=== PATIENT | female | born 1980 | race African-American/Black ===

== ENCOUNTER 2016-08-11 17:45 | Inpatient (IN) | payer OTHER ==
[2016-08-11] MEDS ORDERED: APRESOLINE INJ 20 MG VIAL IVP PRN (19:17)
[2016-08-11] MEDS ORDERED: CATAPRES TAB 0.1 MG PO PRN (19:17)
[2016-08-11] MEDS ORDERED: NS 1000 ML 1,000 ML IV SCH (20:00)
[2016-08-11] MEDS: ZESTRIL TAB 40 MG PO SCH (20:47)
[2016-08-11] MEDS: SNACK - Diabetic Appropriate PO SCH (20:47)
[2016-08-11] MEDS: ACTOS PO SCH (20:47)
[2016-08-11 20:51] LABS: BASOPHILS # (AUTO) 0.1 X10^3/uL (0.0-0.1); BASOPHILS % (AUTO) 0.9 % (0.2-1.0); EOSINOPHILS # (AUTO) 0.1 x10^3/uL (0.0-0.2); HEMOGLOBIN 12.7 g/dL (12.0-16.0); LYMPHOCYTES % (AUTO) 31.6 % (21.0-51.0); MEAN CORPUSCULAR HEMOGLOBIN 24.1 pg (27.0-34.0); MEAN CORPUSCULAR HGB CONC 32.7 g/dL (33.0-35.0); MEAN CORPUSCULAR VOLUME 73.8 fL (80.0-100.0); MEAN PLATELET VOLUME 8.6 fL (7.4-11.0); MONOCYTES # (AUTO) 0.7 x10^3/uL (0.3-0.8); MONOCYTES % (AUTO) 7.6 % (0.0-13.0); NEUTROPHILS # (AUTO) 5.6 x10^3/uL (2.2-4.8); NEUTROPHILS % (AUTO) 58.9 % (42.0-75.0); PLATELET COUNT 219 X10^3/uL (150.0-450.0); RED BLOOD COUNT 5.28 X10^6/uL (3.5-5.4); RED CELL DISTRIBUTION WIDTH 15.2 % (11.6-16.5); WHITE BLOOD COUNT 9.6 X10^3/uL (3.6-10.0)
[2016-08-11 21:04] LABS: HEMOGLOBIN A1C 10.2 % (4.5-6.2)
[2016-08-11 21:07] LABS: HYPOCHROMASIA SLIGHT; MICROCYTOSIS SLIGHT; PLATELET MORPHOLOGY COMMENT NORMAL (NORMAL)
[2016-08-11 21:16] LABS: ALANINE AMINOTRANSFERASE 30 Units/L (12-78); ALBUMIN 3.6 g/dL (3.4-5.0); ALKALINE PHOSPHATASE 116 Units/L (46-116); ASPARTATE AMINO TRANSFERASE 20 Units/L (15-37); BLOOD UREA NITROGEN 11 mg/dL (7-18); CARBON DIOXIDE 23.9 mmol/L (21-32); CHLORIDE 95 mmol/L (98-107); CKMB % 1.1 % (<4); COR NA(FOR HYPERGLY) 138 mmol/L (136-145); CREATINE KINASE 91 Units/L (26-192); CREATINE KINASE MB < 1.0 ng/mL (0-4.0); CREATININE 1.11 mg/dL (0.55-1.02); GLUCOSE 474 mg/dL (65-99); SODIUM 129 mmol/L (136-145); TOTAL PROTEIN 8.3 g/dL (6.4-8.2); TROPONIN I < 0.02 ng/mL (0-1.5); eGFR BLACK RACES > 60 (>60); eGFR NON BLACK RACES 60 (>60)
[2016-08-11] MEDS: HumuLIN R SUBCUT PRN (22:22)
[2016-08-11] MEDS: KEPPRA TAB 500 MG PO SCH (22:25)
[2016-08-11] MEDS: DILANTIN CAP 100 MG EXT REL PO SCH (22:25)
[2016-08-11 23:03] LABS: BILIRUBIN,URINE NEGATIVE (NEGATIVE); BLOOD/HEMOGLOBIN,URINE NEGATIVE (NEGATIVE); GLUCOSE, URINE 4+ (NEGATIVE); KETONES,URINE 3+ (NEGATIVE); LEUKOCYTE ESTERASE ,URINE NEGATIVE (NEGATIVE); NITRITES,URINE NEGATIVE (NEGATIVE); PROTEIN,URINE NEGATIVE (NEGATIVE); UROBILINOGEN,URINE NORMAL (NORMAL)
[2016-08-11 23:10] LABS: APPEARANCE,URINE CLEAR (CLEAR); BACTERIA,URINE TRACE /HPF (NEGATIVE); COLOR,URINE PALE YELLOW (YELLOW); RBC,URINE 0-2 /HPF (NEGATIVE); SQUAMOUS EPITHELIAL CELL,UR RARE /HPF (NEGATIVE)
[2016-08-11] MEDS: LEVEMIR SC SCH (23:40)
[2016-08-12 01:32] LABS: CKMB % 1.2 % (<4); CREATINE KINASE 84 Units/L (26-192); CREATINE KINASE MB < 1.0 ng/mL (0-4.0); TROPONIN I < 0.02 ng/mL (0-1.5)
[2016-08-12] MEDS: HumuLIN R SUBCUT PRN ×5 (06:12→21:41)
[2016-08-12 06:14] LABS: BLOOD UREA NITROGEN 8 mg/dL (7-18); CALCIUM 8.7 mg/dL (8.5-10.1); CARBON DIOXIDE 25.3 mmol/L (21-32); CHLORIDE 100 mmol/L (98-107); COR NA(FOR HYPERGLY) 140 mmol/L (136-145); CREATININE 0.91 mg/dL (0.55-1.02); GLUCOSE 305 mg/dL (65-99); SODIUM 135 mmol/L (136-145); eGFR BLACK RACES > 60 (>60); eGFR NON BLACK RACES > 60 (>60)
--- NOTE | 2016-08-12 06:21 | RAD ---
PA and lateral Chest Indication: Hypertensive urgency Comparison: None available Findings: The trachea is midline. The cardiac silhouette is unremarkable. The lungs are clear without focal infiltrate or effusion. The bony thorax is unremarkable. IMPRESSION: 1. No acute cardiopulmonary abnormality. Reported By:
[2016-08-12 06:22] LABS: BASOPHILS % (AUTO) 0.6 % (0.2-1.0); EOSINOPHILS # (AUTO) 0.1 x10^3/uL (0.0-0.2); EOSINOPHILS % (AUTO) 1.5 % (0.9-2.9); HEMATOCRIT 36.3 % (36.0-47.0); HEMOGLOBIN 12.1 g/dL (12.0-16.0); LYMPHOCYTES # (AUTO) 2.3 X10^3/uL (1.3-2.9); LYMPHOCYTES % (AUTO) 31.1 % (21.0-51.0); MEAN CORPUSCULAR HEMOGLOBIN 24.3 pg (27.0-34.0); MEAN CORPUSCULAR HGB CONC 33.2 g/dL (33.0-35.0); MEAN PLATELET VOLUME 8.8 fL (7.4-11.0); MONOCYTES # (AUTO) 0.7 x10^3/uL (0.3-0.8); MONOCYTES % (AUTO) 9.5 % (0.0-13.0); NEUTROPHILS # (AUTO) 4.2 x10^3/uL (2.2-4.8); NEUTROPHILS % (AUTO) 57.3 % (42.0-75.0); PLATELET COUNT 190 X10^3/uL (150.0-450.0); RED BLOOD COUNT 4.97 X10^6/uL (3.5-5.4); RED CELL DISTRIBUTION WIDTH 15.1 % (11.6-16.5); WHITE BLOOD COUNT 7.3 X10^3/uL (3.6-10.0)
[2016-08-12 08:06] LABS: CKMB % 1.3 % (<4); CREATINE KINASE 80 Units/L (26-192); CREATINE KINASE MB < 1.0 ng/mL (0-4.0); TROPONIN I < 0.02 ng/mL (0-1.5)
[2016-08-12] MEDS: ZESTRIL TAB 40 MG PO SCH (08:44)
[2016-08-12] MEDS: NORVASC TAB 5 MG PO SCH (08:44)
[2016-08-12] MEDS: ACTOS PO SCH (09:31)
[2016-08-12] MEDS ORDERED: NS 1000 ML 1,000 ML IV SCH (10:00)
--- NOTE | 2016-08-12 11:10 | VAS ---
HISTORY: Blurred vision Study: Carotid ultrasound Comparison: None Technique: Multiple prasad scale and color flow Doppler images of the right and left carotid arterial system were obtained. The vertebral arterial system was evaluated as well. Findings: The peak systolic velocity of the right ICA is 55 cm/sec. The peak systolic velocity of the left IC A is 66 cm/sec. The ICA/CCA ratio on the right is 0.9. The ICA/CCA ratio on the left is 1.3. Antegra de vertebral flow was noted on the right. Vertebral flow on the left was not definitely visualized. Correlation with CTA may be helpful. IMPRESSION: 1. No hemodynamically significant carotid stenosis is appreciated. 2. Antegrade vertebral flow on the right. No definite vertebral flow was appreciated on the Reported By:
--- NOTE | 2016-08-12 11:15 | CT ---
HISTORY: Blurry vision Study: CT brain without contrast Comparison: None Technique: Multiple axial images of the brain were obtained from the skull base to the vertex without administr ation of IV contrast. Dose reduction techniques including Automated Exposure Control (AEC) and adju stment of mA and kV were utilized. Findings: The brain parenchyma is within normal limits for patient's age. No evidence of acute hemorrhage, mi dline shift, mass effect or abnormal extra-axial fluid collection. The ventricular system is symmet melanie and nondilated. The soft tissues and osseous structures are unremarkable. The visualized parana lee sinuses are clear. IMPRESSION: 1.No acute intracranial abnormality. Reported By:
--- NOTE | 2016-08-12 13:26 | DR.H&P ---
H&P - History & Physical for Day of: H&P Date: 08/11/16 - Chief Complaint Chief Complaint: HIGH BLOOD PRESSURE, DIZZINESS, VISION "BLURRY" - Allergies Allergies/Adverse Reactions: Allergies Allergy/AdvReac Type Severity Reaction Status Date / Time No Known Drug Allergy Allergy Verified 08/11/16 20:23 - History of Present Illness History of Present Illness: PATIENT IS A 36-YEAR-OLD MORBIDLY OBESE BLACK FEMALE WHO WAS ADMITTED FROM [facility] OFF[facility] WITH HYPERTENSIVE URGENCY, ELEVATED GLUCOSE AND A COMPLAINTS OF DIZZINESS AND BLURRY VISION. pATIENT DOES HAVE HISTORY OF HYPERTENSION AND DIABETES. pLAN TO ADMIT FOR BLOOD PRESSURE AND BLOOD SUGAR CONTROL AND FURTHER EVALUATION OF DIZZINESS AND VISION CHANGES - Past Medical History Past Medical History: Diabetes, Hypertension - Family History Family Medical History: Diabetes Mellitus, Hypertension - Social History Does patient currently use any type of tobacco product: No Have you used tobacco products in the last 12 months: No Type of Tobacco Use: None Does any household member use tobacco: No Alcohol Use: None Drug Use: None - Medications Home Medications: Alprazolam [Xanax] 0.25 mg PO TID PRN 08/12/16 [History Confirmed 08/12/16] Amlodipine Besylate [NORVASC 5 MG *] 5 mg PO DAILY 08/12/16 [History Confirmed 08/12/16] Diazepam [Valium] 10 mg PO DAILY 08/12/16 [History Confirmed 08/12/16] Furosemide [Lasix] 20 mg PO DAILY 08/12/16 [History Confirmed 08/12/16] Gabapentin 100 mg PO TID 08/12/16 [History Confirmed 08/12/16] Hydrocodone-Acet 10/325 mg [NORCO 10 MG/325 MG *] 1 tab PO TID 08/12/16 [ History Confirmed 08/12/16] Levetiracetam [Keppra 1000 mg] 1,000 mg PO BID 08/12/16 [History Confirmed 08/12] Lisinopril 40 mg PO DAILY 08/12/16 [History Confirmed 08/12/16] Phenytoin Sodium Ext Rel [Dilantin Cap 100 mg Ext Rel] 200 mg PO HS 08/12/16 [ History Confirmed 08/12/16] Phenytoin Sodium Ext Rel [Dilantin Cap 100 mg Ext Rel] 400 mg PO AC 08/12/16 [ History Confirmed 08/12/16] Sitagliptin Phosphate [Januvia 25 mg] 25 mg PO DAILY 08/12/16 [History Confirmed 08/12/16] - Review of Systems Constitutional: No Symptoms Reported Eyes: No Symptoms Reported ENT: No Symptoms Reported Respiratory: No Symptoms Reported Cardiovascular: Edema Gastrointestinal: No Symptoms Reported Genitourinary: No Symptoms Reported Musculoskeletal: No Symptoms Reported Skin: No Symptoms Reported Neurological: Other (DIZZINESS, VISION BLURRED) - Physical Exam Vital Signs: Temperature 97.9 F Pulse Rate [Right Brachial] 87 Pulse Rate 86 Respiratory Rate 20 Blood Pressure [Right Arm] 148/67 O2 Sat by Pulse Oximetry 96 Oriented: Normal Eyes: Blurred Vision (C/O) Ear: Normal Nose: Normal Throat: Normal Respiratory: Clear Throughout Cardiovascular: Normal, Edema (+1 BILATERAL LOWER EXTREMITY EDEMA) : Normal Auscultation: Bowel Sounds: Normal Palpation: Normal Tenderness: Normal Skin: Normal Musculoskeletal: Normal Mood Description: Calm Speech Pattern: Clear, Appropriate - Assessment/Plan (1) Hypertensive urgency Status: Acute Plan: ADMIT, BP AND LIPID CONTROL. CARDIAC MONITORING, BS CONTROL WITH SSI (2) Vision disturbance Status: Acute (3) Hyperglycemia Status: Acute (4) Depression Qualifiers: Depression Type: D Major depression recurrence: M Active/Remission status : A Major depression episode severity: M Psychotic features: P Trimester: T Status: Chronic (5) Diabetes mellitus, type II Qualifiers: Diabetes mellitus complication status: D Diabetes mellitus complication detail: D Diabetic retinopathy severity: D Proliferative retinopathy type: P Diabetes mellitus macular edema: D Diabetes mellitus chcf insulin use : D Laterality: L Chronic kidney disease stage: C Status: Chronic Plan: SSI
--- NOTE | 2016-08-12 13:28 | PCM.PROG ---
Addendum entered and electronically signed by ARTHUR MOORE 08/12/16 13:34: assessment and plan: Seizure disorder. Obtain Dilantin level, seizure precautions Original Note: Progress Note - Progress Note for Day of Date: 08/12/16 - Subjective Subjective: patient is a 36-year-old black female who was admitted one day ago with hyper-tension and hyperglycemia. Patient's blood sugar on admission was greater than 400 is slightly improved to 300 this morning. Patient was also hyponatremic on admission and has improved to 1:30/plan to continue IV hydration , CT of the head and carotid artery ultrasound due to continued vision impairment. - Past Medical Family Social History Past Med/Fam/Surg Hx: No changes since H&P Allergies: Allergies No Known Drug Allergy Allergy (Verified 08/11/16 20:23) - Review of Systems ROS: No change since H&P - Vital Signs and I&O's Vital Signs: Temperature 97.9 F Pulse Rate [Right Brachial] 87 Pulse Rate 86 Respiratory Rate 20 Blood Pressure [Right Arm] 148/67 O2 Sat by Pulse Oximetry 96 Intake and Output: Intake & Output 08/10/16 08/11/16 08/12/16 08/13/16 11:59 11:59 11:59 11:59 Intake Total 270 Balance 270 - Physical Exam Oriented: Normal Eyes: Blurred Vision (C/O) Ear: Normal Nose: Normal Throat: Normal Respiratory: Normal Cardiovascular: Normal, Edema (+1 BILATERAL LOWER EXTREMITY EDEMA) : Normal Auscultation: Bowel Sounds: Normal Tenderness: Normal Skin: Normal Musculoskeletal: Normal Mood Description: Calm Speech Pattern: Clear, Appropriate - Laboratory and Diagnostics Result Diagrams: 08/12/16 05:30 08/12/16 05:30 Labs: Laboratory WBC 7.3 X10^3/uL (3.6-10.0) 08/12/16 05:30 RBC 4.97 X10^6/uL (3.5-5.4) 08/12/16 05:30 Hgb 12.1 g/dL (12.0-16.0) 08/12/16 05:30 Hct 36.3 % (36.0-47.0) 08/12/16 05:30 MCV 73.0 fL (80.0-100.0) L 08/12/16 05:30 MCH 24.3 pg (27.0-34.0) L 08/12/16 05:30 MCHC 33.2 g/dL (33.0-35.0) 08/12/16 05:30 RDW 15.1 % (11.6-16.5) 08/12/16 05:30 Plt Count 190 X10^3/uL (150.0-450.0) 08/12/16 05:30 Plt Count Comment Adequate (ADEQUATE) 08/11/16 20:44 MPV 8.8 fL (7.4-11.0) 08/12/16 05:30 Neut % 57.3 % (42.0-75.0) 08/12/16 05:30 Lymph % 31.1 % (21.0-51.0) 08/12/16 05:30 Antelope % 9.5 % (0.0-13.0) 08/12/16 05:30 Eos % 1.5 % (0.9-2.9) 08/12/16 05:30 Baso % 0.6 % (0.2-1.0) 08/12/16 05:30 Neut # 4.2 x10^3/uL (2.2-4.8) 08/12/16 05:30 Lymph # 2.3 X10^3/uL (1.3-2.9) 08/12/16 05:30 Antelope # 0.7 x10^3/uL (0.3-0.8) 08/12/16 05:30 Eos # 0.1 x10^3/uL (0.0-0.2) 08/12/16 05:30 Baso # 0.0 X10^3/uL (0.0-0.1) 08/12/16 05:30 Absolute Nucleated RBC 0.0 /100WBC 08/12/16 05:30 Plt Morphology Comment Normal (NORMAL) 08/11/16 20:44 RBC Morphology Abnormal (NORMAL) A 08/11/16 20:44 Hypochromasia Slight A 08/11/16 20:44 Microcytosis Slight A 08/11/16 20:44 Sodium 135 mmol/L (136-145) L 08/12/16 05:30 Corrected Sodium 140 mmol/L (136-145) 08/12/16 05:30 Potassium 3.8 mmol/L (3.5-5.1) 08/12/16 05:30 Chloride 100 mmol/L (98-107) 08/12/16 05:30 Carbon Dioxide 25.3 mmol/L (21-32) 08/12/16 05:30 BUN 8 mg/dL (7-18) 08/12/16 05:30 Creatinine 0.91 mg/dL (0.55-1.02) 08/12/16 05:30 Est GFR (MDRD) Af Amer > 60 (>60) 08/12/16 05:30 Est GFR (MDRD) Non-Af > 60 (>60) 08/12/16 05:30 Glucose 305 mg/dL (65-99) H 08/12/16 05:30 Hemoglobin A1c 10.2 % (4.5-6.2) H 08/11/16 20:44 Calcium 8.7 mg/dL (8.5-10.1) 08/12/16 05:30 Corrected Calcium TNP 08/11/16 20:44 Total Bilirubin 0.30 mg/dL (0.2-1.0) 08/11/16 20:44 AST 20 Units/L (15-37) 08/11/16 20:44 ALT 30 Units/L (12-78) 08/11/16 20:44 Alkaline Phosphatase 116 Units/L (46-116) 08/11/16 20:44 Creatine Kinase 80 Units/L (26-192) 08/12/16 07:36 CK-MB (CK-2) < 1.0 ng/mL (0-4.0) 08/12/16 07:36 CK/CKMB % Calc 1.3 % (<4) 08/12/16 07:36 Troponin I < 0.02 ng/mL (0-1.5) 08/12/16 07:36 Total Protein 8.3 g/dL (6.4-8.2) H 08/11/16 20:44 Albumin 3.6 g/dL (3.4-5.0) 08/11/16 20:44 Globulin 4.7 g/dL (2.5-4.5) H 08/11/16 20:44 Albumin/Globulin Ratio 0.8 Ratio (1.1-2.1) L 08/11/16 20:44 Specimen Type Clean catch urine 08/11/16 22:55 Urine Color Pale yellow (YELLOW) 08/11/16 22:55 Urine Appearance Clear (CLEAR) 08/11/16 22:55 Urine pH 6.0 (5.0 - 8.0) 08/11/16 22:55 Ur Specific [place] 1.010 (1.000-1.030) 08/11/16 22:55 Urine Protein Negative (NEGATIVE) 08/11/16 22:55 Urine Glucose (UA) 4+ (NEGATIVE) 08/11/16 22:55 Urine Ketones 3+ (NEGATIVE) 08/11/16 22:55 Urine Occult Blood Negative (NEGATIVE) 08/11/16 22:55 Urine Nitrite Negative (NEGATIVE) 08/11/16 22:55 Urine Bilirubin Negative (NEGATIVE) 08/11/16 22:55 Urine Urobilinogen Normal (NORMAL) 08/11/16 22:55 Ur Leukocyte Esterase Negative (NEGATIVE) 08/11/16 22:55 Urine RBC 0-2 /HPF (NEGATIVE) 08/11/16 22:55 Urine WBC 0-2 /HPF (NEGATIVE) 08/11/16 22:55 Ur Squamous Epith Cells Rare /HPF (NEGATIVE) 08/11/16 22:55 Urine Bacteria Trace /HPF (NEGATIVE) 08/11/16 22:55 Ur Culture Indicated? No/not indicated 08/11/16 22:55 - Plan (1) Hypertensive urgency Status: Acute Plan: BP AND LIPID CONTROL. CARDIAC MONITORING, BS CONTROL WITH SSI (2) Vision disturbance Status: Acute Plan: ct head, carotid artery study. increase po water intake, will need op opth exam (3) Hyperglycemia Status: Acute (4) Depression Status: Chronic Qualifiers: Depression Type: D Major depression recurrence: M Active/Remission status : A Major depression episode severity: M Psychotic features: P Trimester: T (5) Diabetes mellitus, type II Status: Chronic Qualifiers: Diabetes mellitus complication status: D Diabetes mellitus complication detail: D Diabetic retinopathy severity: D Proliferative retinopathy type: P Diabetes mellitus macular edema: D Diabetes mellitus utilization management manager insulin use : D Laterality: L Chronic kidney disease stage: C Plan: SSI
[2016-08-12 14:15] VITALS: BMI 48.0
[2016-08-12] MEDS: KEPPRA TAB 500 MG PO SCH (21:40)
[2016-08-12] MEDS: DILANTIN CAP 100 MG EXT REL PO SCH (21:40)
[2016-08-12] MEDS: SNACK - Diabetic Appropriate PO SCH (21:41)
[2016-08-12] MEDS: LEVEMIR SC SCH (21:41)
[2016-08-13 06:15] LABS: BASOPHILS % (AUTO) 0.7 % (0.2-1.0); EOSINOPHILS # (AUTO) 0.1 x10^3/uL (0.0-0.2); EOSINOPHILS % (AUTO) 0.7 % (0.9-2.9); HEMATOCRIT 35.2 % (36.0-47.0); HEMOGLOBIN 11.8 g/dL (12.0-16.0); LYMPHOCYTES # (AUTO) 2.1 X10^3/uL (1.3-2.9); LYMPHOCYTES % (AUTO) 29.2 % (21.0-51.0); MEAN CORPUSCULAR HEMOGLOBIN 24.6 pg (27.0-34.0); MEAN CORPUSCULAR HGB CONC 33.5 g/dL (33.0-35.0); MEAN CORPUSCULAR VOLUME 73.5 fL (80.0-100.0); MEAN PLATELET VOLUME 8.9 fL (7.4-11.0); MONOCYTES # (AUTO) 0.6 x10^3/uL (0.3-0.8); MONOCYTES % (AUTO) 7.8 % (0.0-13.0); NEUTROPHILS # (AUTO) 4.4 x10^3/uL (2.2-4.8); NEUTROPHILS % (AUTO) 61.6 % (42.0-75.0); PLATELET COUNT 167 X10^3/uL (150.0-450.0); RED BLOOD COUNT 4.79 X10^6/uL (3.5-5.4); RED CELL DISTRIBUTION WIDTH 15.1 % (11.6-16.5); WHITE BLOOD COUNT 7.1 X10^3/uL (3.6-10.0)
[2016-08-13] MEDS: HumuLIN R SUBCUT PRN (06:15)
[2016-08-13 06:53] LABS: ALANINE AMINOTRANSFERASE 25 Units/L (12-78); ALKALINE PHOSPHATASE 86 Units/L (46-116); ASPARTATE AMINO TRANSFERASE 17 Units/L (15-37); BLOOD UREA NITROGEN 9 mg/dL (7-18); CALCIUM 8.6 mg/dL (8.5-10.1); CARBON DIOXIDE 22.4 mmol/L (21-32); CHLORIDE 103 mmol/L (98-107); COR CA(FOR HYPOALB) 9.4 mg/dL (8.5-10.1); COR NA(FOR HYPERGLY) 142 mmol/L (136-145); CREATININE 0.84 mg/dL (0.55-1.02); GLUCOSE 340 mg/dL (65-99); SODIUM 136 mmol/L (136-145); TOTAL PROTEIN 6.8 g/dL (6.4-8.2); eGFR BLACK RACES > 60 (>60); eGFR NON BLACK RACES > 60 (>60)
[2016-08-13 06:56] LABS: MICROCYTOSIS SLIGHT; PLATELET MORPHOLOGY COMMENT NORMAL (NORMAL)
[2016-08-13 06:57] LABS: HYPOCHROMASIA SLIGHT
[2016-08-13 08:03] VITALS: BP 117/71
[2016-08-13] MEDS: ZESTRIL TAB 40 MG PO SCH (08:57)
[2016-08-13] MEDS: ACTOS PO SCH (08:57)
[2016-08-13] MEDS: NORVASC TAB 5 MG PO SCH (08:57)
[2016-08-13] MEDS ORDERED: XANAX PO PRN (10:13)
[2016-08-13] MEDS ORDERED: NORCO 10/325 TAB PO PRN (10:13)
[2016-08-13] MEDS ORDERED: SITAGLIPTIN PHOSPHATE 25 MG PO SCH (10:15)
[2016-08-13] MEDS ORDERED: LEVETIRACETAM 1000 MG PO SCH (10:15)
[2016-08-13] MEDS ORDERED: ZESTRIL TAB 40 MG PO SCH (11:00)
[2016-08-13] MEDS ORDERED: NORVASC TAB 5 MG PO SCH (11:00)
[2016-08-13] MEDS ORDERED: NEURONTIN CAP 100 MG PO SCH (11:00)
[2016-08-13] MEDS ORDERED: DILANTIN CAP 100 MG EXT REL PO SCH ×2 (11:30→21:00)
== END 2016-08-13 10:50 | disposition home or self-care (01) | DRG 305 ==
LOC: OBS 17:45
PROVIDERS: ADMIT Internal Medicine; ATTEND Internal Medicine
DX: I16.0 Hypertensive urgency (principal); R94.31 Abnormal electrocardiogram [ECG] [EKG]; R42 Dizziness and giddiness; E11.65 Type 2 diabetes mellitus with hyperglycemia; F32.89 Other specified depressive episodes; H53.8 Other visual disturbances; G40.802 Other epilepsy, not intractable, without status epilepticus; E87.1 Hypo-osmolality and hyponatremia; Z79.4 Long term (current) use of insulin
CPT/HCPCS: 36415; 70450; 71020; 80048; 80053; 80185; 81001; 82550; 82553; 82947; 83036; 84484; 85025; 93005; 93010; 93880; 94760; A4222; 1956; G0378; J0360; J1815